=== PATIENT | male | born 1960 | race Caucasian/White ===

== ENCOUNTER 2019-04-06 09:05 | Observation (INO) | payer MEDICAID ==
[2019-04-06] MEDS ORDERED: Albuterol/Ipratropium 3.0-0.5 MG/3 ML Neb Soln NEB ONE (09:09)
[2019-04-06] MEDS ORDERED: methylPREDNISolone Sodium Succinate 125 MG/2 ML SDV IVPUSH ONE (09:13)
--- NOTE | 2019-04-06 09:34 | EDM.PDOC ---
ED HPI GENERAL MEDICAL PROBLEM - General Chief Complaint: Respiratory Problem Stated Complaint: SOB AND HIGH BP Time Seen by Provider: 04/06/19 09:10 Source of Information: Reports: Patient History Limitations: Reports: No Limitations - History of Present Illness INITIAL COMMENTS - FREE TEXT/NARRATIVE: 59-year-old male who is out at [facility] for detox, has been there for 2 days, has a significant increase in his asthma symptoms of shortness of breath and wheezing. He has been using an albuterol inhaler but it is not helping. No fevers or chills. Persistent nonproductive cough. He has been hospitalized for his asthma in the past and has had steroid bursts. Apparently the patient has quit smoking years ago, most of his chronic pulmonary problems are asthma and not emphysema. Onset: Gradual Duration: Day(s): (The last 2 to 3 days) Associated Symptoms: Reports: Cough, Malaise, Shortness of Breath (Severe shortness of breath). Denies: Chest Pain Generalized Pain Score (Numeric/FACES): 6 - Related Data Allergies Allergy/AdvReac Type Severity Reaction Status Date / Time Penicillins Allergy Cannot Verified 04/06/19 09:19 Remember roflumilast Allergy Cannot Verified 04/06/19 09:19 Remember Home Meds: Home Meds Albuterol Sulfate [Proventil Hfa] 2 puff IH Q4H PRN 04/06/19 [History] Ascorbic Acid [Vitamin C] 1,000 mg PO DAILY 04/06/19 [History] Famotidine 20 mg PO BID 04/06/19 [History] Furosemide [Lasix] 40 mg PO DAILY 04/06/19 [History] Magnesium Oxide [Magnesium] 400 mg PO BID 04/06/19 [History] Metoprolol Succinate [Toprol XL 50mg] 50 mg PO DAILY 04/06/19 [History] Montelukast [Singulair] 10 mg PO DAILY 04/06/19 [History] Potassium Chloride [Klor-Con M20] 20 meq PO DAILY 04/06/19 [History] Propranolol [Inderal] 10 mg PO BID 04/06/19 [History] amLODIPine [Norvasc] 10 mg PO DAILY 04/06/19 [History] ED ROS GENERAL - Review of Systems Review Of Systems: See Below Constitutional: Reports: Malaise. Denies: Fever, Chills HEENT: Denies: Throat Pain Respiratory: Reports: Shortness of Breath, Cough, Sputum (Scant, frothy) Cardiovascular: Reports: Other (Concerned about elevated blood pressure). Denies: Chest Pain, Palpitations GI/Abdominal: Denies: Abdominal Pain, Nausea, Vomiting Skin: Reports: Other (Distal extremities looks somewhat dusky) Neurological: Reports: Headache Psychiatric: Reports: Anxiety ED EXAM, GENERAL - Physical Exam Exam: See Below Exam Limited By: No Limitations General Appearance: Moderate Distress, Other (Patient looks very uncomfortable, using accessory muscles and in moderate respiratory distress) Eye Exam: Bilateral Eye: EOMI (No jaundice) Throat/Mouth: Other (Advanced dental decay is present) Head: Atraumatic Neck: Supple, Non-Tender Respiratory/Chest: Respiratory Distress, Wheezing (Diffuse expiratory wheezing and almost no air movement in the bases bilaterally) Cardiovascular: Regular Rate, Rhythm GI/Abdominal: Soft, Non-Tender Extremities: No: Pedal Edema Neurological: Alert, Oriented Psychiatric: Anxious Skin Exam: Warm, Dry, Other (Bruises of the skin on both forearms are present in various stages of healing) Course - Vital Signs Last Recorded V/S: Last Vital Signs Temp 98.3 F 04/06/19 11:25 Pulse 83 04/06/19 11:40 Resp 20 04/06/19 11:25 BP 148/75 H 04/06/19 11:25 Pulse Ox 93 L 04/06/19 11:40 - Orders/Labs/Meds Orders: Active Orders 24 hr Category Date Time Status RT Aerosol Therapy [RC] ASDIRECTED Care 04/06/19 09:09 Active Chest 2V [CR] Routine Exams 04/06/19 09:12 Taken CULTURE RESPIRATORY + SMEAR [RM] Stat Lab 04/06/19 09:29 Results Medication Orders Albuterol (Ventolin Hfa) 0 gm INH Q4H PRN PRN Reason: Wheezing Albuterol/Ipratropium (Duoneb 3.0-0.5 Mg/3 Ml) 3 ml NEB Q4H [facility] Last Admin: 04/06/19 11:40 Dose: 3 ml Amlodipine Besylate (Norvasc) 10 mg PO DAILY [facility] Ascorbic Acid (Vitamin C) 1,000 mg PO DAILY [facility] Famotidine (Pepcid) 20 mg PO BID [facility] Furosemide (Lasix) 40 mg PO DAILY [facility] Magnesium Oxide (Magnesium Oxide) 400 mg PO BID [facility] Metoprolol Succinate (Toprol Xl) 50 mg PO DAILY [facility] Montelukast Sodium (Singulair) 10 mg PO DAILY [facility] Potassium Chloride (Klor-Con M20) 20 meq PO DAILY@0800 [facility] Prednisone (Prednisone) 20 mg PO TID [facility] Last Admin: 04/06/19 13:42 Dose: 20 mg Labs: Laboratory Tests 04/06/19 04/06/19 04/06/19 Range/Units 09:12 09:21 09:21 WBC 15.3 H (4.5-11.0) K/uL RBC 5.04 (4.30-5.90) M/uL Hgb 15.5 H (12.0-15.0) g/dL Hct 46.1 (40.0-54.0) % MCV 92 (80-98) fL MCH 31 (27-31) pg MCHC 34 (32-36) % Plt Count 203 (150-400) K/uL Neut % (Auto) 61 (36-66) % Lymph % (Auto) 12 L (24-44) % [place] % (Auto) 11 H (2-6) % Eos % (Auto) 16 H (2-4) % Baso % (Auto) 1 (0-1) % Puncture Site Rt radial ABG pH 7.407 (7.350-7.450) ABG pCO2 46.0 H (35.0-42.0) mmHg ABG pO2 62.7 L (75.0-100.0) mmHg ABG HCO3 28.4 H (22.0-26.0) mmol/L ABG Total CO2 24.8 (23.0-27.0) mmol/L ABG O2 Saturation 90.6 L (95.0-98.0) % ABG O2 Content 18.2 (15.0-23.0) %vol ABG Base Excess 3.5 mm/L ABG Hemoglobin 14.6 (13.5-18.0) g/dL ABG Oxyhemoglobin 88.7 % ABG Carboxyhemoglobin 1.5 (0.0-1.6) % ABG Methemoglobin 0.6 % Dashawn Test Passed O2 Delivery Device Room air Sodium 142 (140-148) mmol/L Potassium 3.5 L (3.6-5.2) mmol/L Chloride 101 (100-108) mmol/L Carbon Dioxide 30 (21-32) mmol/L Anion Gap 14.5 H (5.0-14.0) mmol/L BUN 10 (7-18) mg/dL Creatinine 0.9 (0.8-1.3) mg/dL Est Cr Clr Drug Dosing 85.05 mL/min Estimated GFR (MDRD) > 60 (>60) Glucose 93 (74-106) mg/dL Calcium 8.8 (8.5-10.1) mg/dL Meds: Medications Generic Name Dose Route Start Last Admin Trade Name Garth PRN Reason Stop Dose Admin Albuterol 0 gm 04/06/19 10:44 Ventolin Hfa INH Q4H PRN Wheezing Albuterol/Ipratropium 3 ml 04/06/19 11:00 04/06/19 11:40 Duoneb 3.0-0.5 Mg/3 Ml NEB 3 ml Q4H [facility] Administration Amlodipine Besylate 10 mg 04/07/19 09:00 Norvasc PO DAILY [facility] Ascorbic Acid 1,000 mg 04/07/19 09:00 Vitamin C PO DAILY [facility] Famotidine 20 mg 04/06/19 21:00 Pepcid PO BID [facility] Furosemide 40 mg 04/07/19 09:00 Lasix PO DAILY [facility] Magnesium Oxide 400 mg 04/06/19 21:00 Magnesium Oxide PO BID [facility] Metoprolol Succinate 50 mg 04/07/19 09:00 Toprol Xl PO DAILY [facility] Montelukast Sodium 10 mg 04/07/19 09:00 Singulair PO DAILY [facility] Potassium Chloride 20 meq 04/07/19 08:00 Klor-Con M20 PO DAILY@0800 [facility] Prednisone 20 mg 04/06/19 14:00 04/06/19 13:42 Prednisone PO 20 mg TID [facility] Administration Discontinued Medications Generic Name Dose Route Start Last Admin Trade Name Garth PRN Reason Stop Dose Admin Albuterol/Ipratropium 3 ml 04/06/19 09:09 04/06/19 09:20 Duoneb 3.0-0.5 Mg/3 Ml NEB 04/06/19 09:10 3 ml ONETIME ONE Administration Methylprednisolone Sodium Succinate 125 mg 04/06/19 09:13 04/06/19 09:21 Solu-Medrol IVPUSH 04/06/19 09:14 125 mg ONETIME ONE Administration - Re-Assessments/Exams Free Text/Narrative Re-Assessment/Exam: 04/06/19 09:36 Patient was given a DuoNeb, O2 saturations were 88 to 92% on room air with extra patient effort. CBC, CMP and blood gases obtained on room air. A two- view chest x-ray then obtained. IV was placed and the patient was given 125 mg of IV Solu-Medrol. 04/06/19 10:13 Patient had some subjective improvement and moderate objective improvement after the DuoNeb. O2 saturations remained in the low 90s with only mild to moderate extra respiratory effort. Blood gases showed some retention of CO2 and a PO2 of only 62.7. pH was normal. Chest x-ray showed hyperinflation but no infiltrate or pneumothorax. A patient I think needs hospitalization for 24 hours of IV Solu-Medrol, repeated DuoNebs and possibly O2 support. This was discussed with Dr. Alonso, and he kindly agreed to see the patient for admission. 04/06/19 10:17 Patient also coughed up some slightly colored frothy sputum which was cultured and Gram stained. Departure - Departure Time of Disposition: 11:19 Disposition: Admitted As Inpatient 66 Clinical Impression: Exacerbation of asthma Qualifiers: Asthma severity: severe Asthma persistence: persistent Qualified Code(s): J45.51 - Severe persistent asthma with (acute) exacerbation - Discharge Information Sepsis Event Note - Focused Exam Vital Signs: Vital Signs Temp Pulse Resp BP Pulse Ox 04/06/19 09:51 96.4 F 96 17 169/93 H 92 L 04/06/19 09:13 96.4 F 96 17 169/93 H 92 L Date Exam was Performed: 04/06/19 Time Exam was Performed: 14:49 - My Orders Last 24 Hours: My Active Orders 04/06/19 09:09 RT Aerosol Therapy [RC] ASDIRECTED 04/06/19 09:12 Chest 2V [CR] Routine 04/06/19 09:29 CULTURE RESPIRATORY + SMEAR [RM] Stat - Assessment/Plan Last 24 Hours: My Active Orders 04/06/19 09:09 RT Aerosol Therapy [RC] ASDIRECTED 04/06/19 09:12 Chest 2V [CR] Routine 04/06/19 09:29 CULTURE RESPIRATORY + SMEAR [RM] Stat
--- NOTE | 2019-04-06 10:29 | PCM.HP.2 ---
H&P History of Present Illness - General Date of Service: 04/06/19 Source of Information: Patient, EMS History Limitations: Reports: No Limitations - History of Present Illness Initial Comments - Free Text/Narative: Anil has a history of COPD and had smoked for 35 years. He stopped because of the respiratory condition. 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 He usually takes albuterol and duo-nebs 6 times/day. He came to [facility] 2 days ago. Onset of Symptoms: Reports: Gradual Duration of Symptoms: Reports: Chronic Generalized Pain Score (Numeric/FACES): 6 - Related Data Allergies/Adverse Reactions: Allergies Allergy/AdvReac Type Severity Reaction Status Date / Time Penicillins Allergy Cannot Verified 04/06/19 09:19 Remember roflumilast Allergy Cannot Verified 04/06/19 09:19 Remember Home Medications: Home Meds Albuterol Sulfate [Proventil Hfa] 2 puff IH Q4H PRN 04/06/19 [History] Ascorbic Acid [Vitamin C] 1,000 mg PO DAILY 04/06/19 [History] Famotidine 20 mg PO BID 04/06/19 [History] Furosemide [Lasix] 40 mg PO DAILY 04/06/19 [History] Magnesium Oxide [Magnesium] 400 mg PO BID 04/06/19 [History] Metoprolol Tartrate [Lopressor] 50 mg PO DAILY 04/06/19 [History] Montelukast [Singulair] 10 mg PO DAILY 04/06/19 [History] Potassium Chloride [Klor-Con M20] 20 meq PO DAILY 04/06/19 [History] Propranolol [Inderal] 10 mg PO BID 04/06/19 [History] amLODIPine [Norvasc] 10 mg PO DAILY 04/06/19 [History] Past Medical History HEENT History: Reports: Cataract, Impaired Vision Cardiovascular History: Reports: Hypertension Respiratory History: Reports: Asthma, COPD Gastrointestinal History: Reports: GERD Musculoskeletal History: Reports: Other (See Below) Other Musculoskeletal History: l foot fx - Infectious Disease History Infectious Disease History: Reports: Chicken Pox - Past Surgical History GI Surgical History: Reports: Hernia, Inguinal Social & Family History - Tobacco Use Smoking Status *Q: Former Smoker Years of Tobacco use: 35 Packs/Tins Daily: 1 Used Tobacco, but Quit: Yes Month/Year Tobacco Last Used: Apr 2013 Second Hand Smoke Exposure: Yes - Caffeine Use Caffeine Use: Reports: Soda - Alcohol Use Days Per Week of Alcohol Use: 7 Number of Drinks Per Day: 10 Total Drinks Per Week: 70 Date of Last Drink: 04/04/19 Time of Last Drink: 11:00 - Recreational Drug Use Recreational Drug Use: Yes Recreational Drug Type: Reports: Marijuana/Hashish, Methamphetamine Recreational Drug Use Frequency: Rarely H&P Review of Systems - Review of Systems: Review Of Systems: See Below General: Reports: Fatigue, Decreased Appetite HEENT: Reports: Sinus Congestion Pulmonary: Reports: Shortness of Breath, Wheezing, Cough, Sputum Cardiovascular: Reports: No Symptoms Gastrointestinal: Reports: No Symptoms Genitourinary: Reports: No Symptoms Musculoskeletal: Reports: No Symptoms Skin: Reports: No Symptoms Psychiatric: Reports: No Symptoms Neurological: Reports: No Symptoms Hematologic/Lymphatic: Reports: No Symptoms Immunologic: Reports: No Symptoms Exam - Exam Exam: See Below - Vital Signs Vital Signs: Last Vital Signs Temp 96.4 F 04/06/19 09:51 Pulse 96 04/06/19 09:51 Resp 17 04/06/19 09:51 BP 169/93 H 04/06/19 09:51 Pulse Ox 92 L 04/06/19 09:51 Weight: 150 lb - Exam General: Alert, Oriented, 4 HEENT: PERRLA, Hearing Intact, Mucosa Moist & [place], Nares Patent, Normal Nasal Septum, Posterior Pharynx Clear, Conjunctiva Clear, EOMI, EACs Clear, TMs Clear Neck: Supple, Trachea Midline, 2 Lungs: Wheezing Cardiovascular: Regular Rate GI/Abdominal Exam: Normal Bowel Sounds, No Distention Back Exam: Normal Inspection Peripheral Pulses: 1+: Radial (L), Radial (R) Skin: Warm, Dry, Intact Neurological: Reflexes Equal Bilateral Neuro Extensive - Mental Status: Alert, Oriented x3, Normal Mood/Affect, Normal Cognition Neuro Extensive - Motor, Sensory, Reflexes: Normal Gait DTR: 1+: Bicep (L), Bicep (R) Psychiatric: Alert - Patient Data Lab Results Last 24 hrs: Laboratory Results - last 24 hr 04/06/19 04/06/19 04/06/19 Range/Units 09:12 09:21 09:21 WBC 15.3 H (4.5-11.0) K/uL RBC 5.04 (4.30-5.90) M/uL Hgb 15.5 H (12.0-15.0) g/dL Hct 46.1 (40.0-54.0) % MCV 92 (80-98) fL MCH 31 (27-31) pg MCHC 34 (32-36) % Plt Count 203 (150-400) K/uL Neut % (Auto) 61 (36-66) % Lymph % (Auto) 12 L (24-44) % [place] % (Auto) 11 H (2-6) % Eos % (Auto) 16 H (2-4) % Baso % (Auto) 1 (0-1) % Puncture Site Rt radial ABG pH 7.407 (7.350-7.450) ABG pCO2 46.0 H (35.0-42.0) mmHg ABG pO2 62.7 L (75.0-100.0) mmHg ABG HCO3 28.4 H (22.0-26.0) mmol/L ABG Total CO2 24.8 (23.0-27.0) mmol/L ABG O2 Saturation 90.6 L (95.0-98.0) % ABG O2 Content 18.2 (15.0-23.0) %vol ABG Base Excess 3.5 mm/L ABG Hemoglobin 14.6 (13.5-18.0) g/dL ABG Oxyhemoglobin 88.7 % ABG Carboxyhemoglobin 1.5 (0.0-1.6) % ABG Methemoglobin 0.6 % Dashawn Test Passed O2 Delivery Device Room air Sodium 142 (140-148) mmol/L Potassium 3.5 L (3.6-5.2) mmol/L Chloride 101 (100-108) mmol/L Carbon Dioxide 30 (21-32) mmol/L Anion Gap 14.5 H (5.0-14.0) mmol/L BUN 10 (7-18) mg/dL Creatinine 0.9 (0.8-1.3) mg/dL Est Cr Clr Drug Dosing 85.05 mL/min Estimated GFR (MDRD) > 60 (>60) Glucose 93 (74-106) mg/dL Calcium 8.8 (8.5-10.1) mg/dL Result Diagrams: 04/06/19 09:21 04/06/19 09:21 Duy Results Last 24 hrs: Microbiology 04/06/19 09:29 Gram Stain - Final Sputum - Expectorated Sepsis Event Note - Evaluation Sepsis Screening Result: No Definite Risk - Focused Exam Vital Signs: Vital Signs Temp Pulse Resp BP Pulse Ox 04/06/19 09:51 96.4 F 96 17 169/93 H 92 L 04/06/19 09:13 96.4 F 96 17 169/93 H 92 L Date Exam was Performed: 04/06/19 Time Exam was Performed: 10:23 Problem List Initiated/Reviewed/Updated: Yes Orders Last 24hrs: Active Orders 24 hr Category Date Time Status RT Aerosol Therapy [RC] ASDIRECTED Care 04/06/19 09:09 Active Chest 2V [CR] Routine Exams 04/06/19 09:12 Taken CULTURE RESPIRATORY + SMEAR [RM] Stat Lab 04/06/19 09:29 Results Assessment/Plan Comment:: Assessment/plan: #1. COPD: Will put in the hospital and give steroids and respiratory treatments and discharge when stable. 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 Will watch for starting of symptoms. #3. Hypertension: Will continue with Metoprolol. - Mortality Measure Prognosis:: Good
[2019-04-06] MEDS ORDERED: Albuterol 8 GM Inhaler INH PRN (10:44)
[2019-04-06] MEDS: Albuterol/Ipratropium 3.0-0.5 MG/3 ML Neb Soln NEB SCH ×4 (11:40→22:01)
[2019-04-06] MEDS: predniSONE 20 MG Tab PO SCH ×2 (13:42→20:22)
[2019-04-06] MEDS: Famotidine 20 MG Tab PO SCH (20:22)
[2019-04-06] MEDS: Magnesium Oxide 400 MG Tab PO SCH (20:22)
[2019-04-06] MEDS ORDERED: Acetaminophen 325 MG Tab PO PRN (21:44)
[2019-04-07] MEDS ORDERED: Melatonin 3 MG Tab PO PRN (00:20)
[2019-04-07] MEDS: Albuterol/Ipratropium 3.0-0.5 MG/3 ML Neb Soln NEB SCH ×3 (03:23→07:22)
[2019-04-07] MEDS ORDERED: Potassium Chloride 20 MEQ Tab.ER PO SCH (08:00)
--- NOTE | 2019-04-07 08:15 | PCM.PN ---
- General Info Date of Service: 04/07/19 Subjective Update: Breathing he said is stable and has no complaints. He denies DT's. - Review of Systems General: Reports: No Symptoms HEENT: Reports: No Symptoms Pulmonary: Reports: No Symptoms Cardiovascular: Reports: No Symptoms Gastrointestinal: Reports: No Symptoms Genitourinary: Reports: No Symptoms Musculoskeletal: Reports: No Symptoms Skin: Reports: No Symptoms Neurological: Reports: No Symptoms Psychiatric: Reports: No Symptoms - Patient Data Vitals - Most Recent: Last Vital Signs Temp 97.1 F 04/07/19 07:00 Pulse 88 04/07/19 07:31 Resp 16 04/07/19 07:00 BP 134/77 04/07/19 07:00 Pulse Ox 94 L 04/07/19 07:00 Weight - Most Recent: 143 lb 12.8 oz I&O - Last 24 Hours: Intake & Output 04/06/19 04/07/19 04/07/19 22:59 06:59 14:59 Intake Total 1080 1000 240 Balance 1080 1000 240 Lab Results Last 24 Hours: Laboratory Results - last 24 hr 04/06/19 04/06/19 04/06/19 Range/Units 09:12 09:21 09:21 WBC 15.3 H (4.5-11.0) K/uL RBC 5.04 (4.30-5.90) M/uL Hgb 15.5 H (12.0-15.0) g/dL Hct 46.1 (40.0-54.0) % MCV 92 (80-98) fL MCH 31 (27-31) pg MCHC 34 (32-36) % Plt Count 203 (150-400) K/uL Neut % (Auto) 61 (36-66) % Lymph % (Auto) 12 L (24-44) % [place] % (Auto) 11 H (2-6) % Eos % (Auto) 16 H (2-4) % Baso % (Auto) 1 (0-1) % Puncture Site Rt radial ABG pH 7.407 (7.350-7.450) ABG pCO2 46.0 H (35.0-42.0) mmHg ABG pO2 62.7 L (75.0-100.0) mmHg ABG HCO3 28.4 H (22.0-26.0) mmol/L ABG Total CO2 24.8 (23.0-27.0) mmol/L ABG O2 Saturation 90.6 L (95.0-98.0) % ABG O2 Content 18.2 (15.0-23.0) %vol ABG Base Excess 3.5 mm/L ABG Hemoglobin 14.6 (13.5-18.0) g/dL ABG Oxyhemoglobin 88.7 % ABG Carboxyhemoglobin 1.5 (0.0-1.6) % ABG Methemoglobin 0.6 % Dashawn Test Passed O2 Delivery Device Room air Sodium 142 (140-148) mmol/L Potassium 3.5 L (3.6-5.2) mmol/L Chloride 101 (100-108) mmol/L Carbon Dioxide 30 (21-32) mmol/L Anion Gap 14.5 H (5.0-14.0) mmol/L BUN 10 (7-18) mg/dL Creatinine 0.9 (0.8-1.3) mg/dL Est Cr Clr Drug Dosing 85.05 mL/min Estimated GFR (MDRD) > 60 (>60) Glucose 93 (74-106) mg/dL Calcium 8.8 (8.5-10.1) mg/dL 04/07/19 04/07/19 Range/Units 04:46 04:46 WBC 15.0 H (4.5-11.0) K/uL RBC 4.31 (4.30-5.90) M/uL Hgb 13.2 D (12.0-15.0) g/dL Hct 38.6 L (40.0-54.0) % MCV 90 (80-98) fL MCH 31 (27-31) pg MCHC 34 (32-36) % Plt Count 152 (150-400) K/uL Neut % (Auto) (36-66) % Lymph % (Auto) (24-44) % [place] % (Auto) (2-6) % Eos % (Auto) (2-4) % Baso % (Auto) (0-1) % Puncture Site ABG pH (7.350-7.450) ABG pCO2 (35.0-42.0) mmHg ABG pO2 (75.0-100.0) mmHg ABG HCO3 (22.0-26.0) mmol/L ABG Total CO2 (23.0-27.0) mmol/L ABG O2 Saturation (95.0-98.0) % ABG O2 Content (15.0-23.0) %vol ABG Base Excess mm/L ABG Hemoglobin (13.5-18.0) g/dL ABG Oxyhemoglobin % ABG Carboxyhemoglobin (0.0-1.6) % ABG Methemoglobin % Dashawn Test O2 Delivery Device Sodium 135 L (140-148) mmol/L Potassium 4.1 (3.6-5.2) mmol/L Chloride 98 L (100-108) mmol/L Carbon Dioxide 26 (21-32) mmol/L Anion Gap 15.1 H (5.0-14.0) mmol/L BUN 18 D (7-18) mg/dL Creatinine 1.0 (0.8-1.3) mg/dL Est Cr Clr Drug Dosing 73.38 mL/min Estimated GFR (MDRD) > 60 (>60) Glucose 156 H (74-106) mg/dL Calcium 8.0 L (8.5-10.1) mg/dL Duy Results Last 24 Hours: Microbiology 04/06/19 09:29 Gram Stain - Final Sputum - Expectorated Respiratory Culture - Preliminary NORMAL RESPIRATORY LIDIA 1 DAY Med Orders - Current: Current Medications Acetaminophen (Tylenol) 650 mg PO Q4H PRN PRN Reason: Headache Last Admin: 04/06/19 21:49 Dose: 650 mg Albuterol (Ventolin Hfa) 0 gm INH Q4H PRN PRN Reason: Wheezing Albuterol/Ipratropium (Duoneb 3.0-0.5 Mg/3 Ml) 3 ml NEB Q4H [facility] Last Admin: 04/07/19 07:22 Dose: 3 ml Amlodipine Besylate (Norvasc) 10 mg PO DAILY [facility] Ascorbic Acid (Vitamin C) 1,000 mg PO DAILY [facility] Famotidine (Pepcid) 20 mg PO BID [facility] Last Admin: 04/06/19 20:22 Dose: 20 mg Furosemide (Lasix) 40 mg PO DAILY [facility] Magnesium Oxide (Magnesium Oxide) 400 mg PO BID [facility] Last Admin: 04/06/19 20:22 Dose: 400 mg Melatonin (Melatonin) 9 mg PO BEDTIME PRN PRN Reason: Sleep Last Admin: 01/31/20 00:47 Dose: 9 mg Metoprolol Succinate (Toprol Xl) 50 mg PO DAILY [facility] Montelukast Sodium (Singulair) 10 mg PO DAILY [facility] Potassium Chloride (Klor-Con M20) 20 meq PO DAILY@0800 [facility] Last Admin: 04/07/19 07:40 Dose: 20 meq Prednisone (Prednisone) 20 mg PO TID [facility] Last Admin: 04/06/19 20:22 Dose: 20 mg Discontinued Medications Albuterol/Ipratropium (Duoneb 3.0-0.5 Mg/3 Ml) 3 ml NEB ONETIME ONE Stop: 04/06/19 09:10 Last Admin: 04/06/19 09:20 Dose: 3 ml Methylprednisolone Sodium Succinate (Solu-Medrol) 125 mg IVPUSH ONETIME ONE Stop: 04/06/19 09:14 Last Admin: 04/06/19 09:21 Dose: 125 mg - Exam General: Alert, Oriented HEENT: Pupils Equal, Pupils Reactive, EOMI, Mucous Membr. Moist/[place] Neck: Supple Lungs: Wheezing Cardiovascular: Regular Rate, Regular Rhythm GI/Abdominal Exam: Normal Bowel Sounds, Soft, Non-Tender, No Organomegaly, No Distention, No Abnormal Bruit, No Mass, Pelvis Stable Extremities: Normal Inspection, Normal Range of Motion, Non-Tender, No Pedal Edema, Normal Capillary Refill Peripheral Pulses: 1+: Radial (L), Radial (R) Skin: Warm, Dry, Intact Neurological: No New Focal Deficit Psy/Mental Status: Alert, Normal Affect, Normal Mood Sepsis Event Note - Evaluation Sepsis Screening Result: No Definite Risk - Focused Exam Vital Signs: Vital Signs Temp Pulse Resp BP Pulse Ox 04/07/19 07:31 88 04/07/19 07:00 97.1 F 89 16 134/77 94 L 04/07/19 03:31 96.2 F 87 16 159/81 H 94 L 04/07/19 03:00 16 04/06/19 22:46 98.2 F 99 16 133/80 97 Date Exam was Performed: 04/07/19 Time Exam was Performed: 08:12 - Problem List Review Problem List Initiated/Reviewed/Updated: Yes - My Orders Last 24 Hours: My Active Orders 04/06/19 10:37 Patient Status [ADT] Routine May Shower [RC] ASDIRECTED Oxygen Therapy [RC] PRN Up ad Cuca [RC] ASDIRECTED Up to Chair [RC] QID VTE/DVT Education [RC] Per Unit Routine Vital Signs [RC] Q4H Resuscitation Status Routine 04/06/19 10:40 Intake and Output [RC] QSHIFT 04/06/19 10:43 RT Aerosol Therapy [RC] ASDIRECTED 04/06/19 10:44 Albuterol [Ventolin HFA] 0 gm INH Q4H PRN 04/06/19 11:00 Albuterol/Ipratropium [DuoNeb 3.0-0.5 MG/3 ML] 3 ml NEB Q4H 04/06/19 14:00 predniSONE 20 mg PO TID 04/06/19 21:00 Famotidine [Pepcid] 20 mg PO BID Magnesium Oxide 400 mg PO BID 04/06/19 21:44 Acetaminophen [Tylenol] 650 mg PO Q4H PRN 04/06/19 Lunch Regular Diet [DIET] 04/07/19 00:20 Melatonin 9 mg PO BEDTIME PRN 04/07/19 08:00 Potassium Chloride [Klor-Con M20] 20 meq PO DAILY@0800 04/07/19 08:11 Ready for Discharge [RC] PER UNIT ROUTINE 04/07/19 09:00 Ascorbic Acid [Vitamin C] 1,000 mg PO DAILY Furosemide [Lasix] 40 mg PO DAILY Metoprolol Succinate [Toprol XL] 50 mg PO DAILY Montelukast [Singulair] 10 mg PO DAILY amLODIPine [Norvasc] 10 mg PO DAILY - Plan Plan:: Assessment/plan: #1. COPD: KStable at the present time and in no respiratory distress. 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 #3. Hypertension: Will continue with Metoprolol. Plan to discharge home today.
--- NOTE | 2019-04-07 08:19 | PCM.DCSUM1 ---
Discharge Summary - Hospital Course Brief History: Admitted in respiratory distress as he has a hisstory of COPD Diagnosis: Stroke: No - Discharge Data Discharge Date: 04/07/19 Discharge Disposition: Home, Self-Care 01 Condition: Stable - Referral to Home Health Primary Care Physician: PCP None - Patient Summary/Data Hospital Course: Started him back of duo-nebs and prednisone and made rapid improvement and is stable for discharge. - Patient Instructions Diet: Heart Healthy Diet Activity: As Tolerated - Discharge Plan *PRESCRIPTION DRUG MONITORING PROGRAM REVIEWED*: No *COPY OF PRESCRIPTION DRUG MONITORING REPORT IN PATIENT DIOGENES: No Home Medications: Home Meds Albuterol Sulfate [Proventil Hfa] 2 puff IH Q4H PRN 04/06/19 [History] Ascorbic Acid [Vitamin C] 1,000 mg PO DAILY 04/06/19 [History] Famotidine 20 mg PO BID 04/06/19 [History] Furosemide [Lasix] 40 mg PO DAILY 04/06/19 [History] Magnesium Oxide [Magnesium] 400 mg PO BID 04/06/19 [History] Metoprolol Succinate [Toprol XL 50mg] 50 mg PO DAILY 04/06/19 [History] Montelukast [Singulair] 10 mg PO DAILY 04/06/19 [History] Potassium Chloride [Klor-Con M20] 20 meq PO DAILY 04/06/19 [History] Propranolol [Inderal] 10 mg PO BID 04/06/19 [History] amLODIPine [Norvasc] 10 mg PO DAILY 04/06/19 [History] predniSONE 20 mg PO TID tablet 04/07/19 [Rx] Forms: ED Department Discharge Referrals: PCP,None [Primary Care Provider] - - Discharge Summary/Plan Comment DC Time >30 min.: Yes Discharge Summary/Plan Comment: Assessment/plan: #1. COPD: KStable at the present time and in no respiratory distress. 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 #3. Hypertension: Will continue with Metoprolol. Plan to discharge home today. - General Info Date of Service: 04/07/19 Functional Status: Reports: Ambulating - Review of Systems General: Reports: No Symptoms HEENT: Reports: No Symptoms Pulmonary: Reports: No Symptoms Cardiovascular: Reports: No Symptoms Gastrointestinal: Reports: No Symptoms Genitourinary: Reports: No Symptoms Musculoskeletal: Reports: No Symptoms Skin: Reports: No Symptoms Neurological: Reports: No Symptoms Psychiatric: Reports: No Symptoms - Patient Data Vitals - Most Recent: Last Vital Signs Temp 97.1 F 04/07/19 07:00 Pulse 88 04/07/19 07:31 Resp 16 04/07/19 07:00 BP 134/77 04/07/19 07:00 Pulse Ox 94 L 04/07/19 07:00 Weight - Most Recent: 143 lb 12.8 oz I&O - Last 24 hours: Intake & Output 04/06/19 04/07/19 04/07/19 22:59 06:59 14:59 Intake Total 1080 1000 240 Balance 1080 1000 240 Lab Results - Last 24 hrs: Laboratory Results - last 24 hr 04/06/19 04/06/19 04/06/19 Range/Units 09:12 09:21 09:21 WBC 15.3 H (4.5-11.0) K/uL RBC 5.04 (4.30-5.90) M/uL Hgb 15.5 H (12.0-15.0) g/dL Hct 46.1 (40.0-54.0) % MCV 92 (80-98) fL MCH 31 (27-31) pg MCHC 34 (32-36) % Plt Count 203 (150-400) K/uL Neut % (Auto) 61 (36-66) % Lymph % (Auto) 12 L (24-44) % [place] % (Auto) 11 H (2-6) % Eos % (Auto) 16 H (2-4) % Baso % (Auto) 1 (0-1) % Puncture Site Rt radial ABG pH 7.407 (7.350-7.450) ABG pCO2 46.0 H (35.0-42.0) mmHg ABG pO2 62.7 L (75.0-100.0) mmHg ABG HCO3 28.4 H (22.0-26.0) mmol/L ABG Total CO2 24.8 (23.0-27.0) mmol/L ABG O2 Saturation 90.6 L (95.0-98.0) % ABG O2 Content 18.2 (15.0-23.0) %vol ABG Base Excess 3.5 mm/L ABG Hemoglobin 14.6 (13.5-18.0) g/dL ABG Oxyhemoglobin 88.7 % ABG Carboxyhemoglobin 1.5 (0.0-1.6) % ABG Methemoglobin 0.6 % Dashawn Test Passed O2 Delivery Device Room air Sodium 142 (140-148) mmol/L Potassium 3.5 L (3.6-5.2) mmol/L Chloride 101 (100-108) mmol/L Carbon Dioxide 30 (21-32) mmol/L Anion Gap 14.5 H (5.0-14.0) mmol/L BUN 10 (7-18) mg/dL Creatinine 0.9 (0.8-1.3) mg/dL Est Cr Clr Drug Dosing 85.05 mL/min Estimated GFR (MDRD) > 60 (>60) Glucose 93 (74-106) mg/dL Calcium 8.8 (8.5-10.1) mg/dL 04/07/19 04/07/19 Range/Units 04:46 04:46 WBC 15.0 H (4.5-11.0) K/uL RBC 4.31 (4.30-5.90) M/uL Hgb 13.2 D (12.0-15.0) g/dL Hct 38.6 L (40.0-54.0) % MCV 90 (80-98) fL MCH 31 (27-31) pg MCHC 34 (32-36) % Plt Count 152 (150-400) K/uL Neut % (Auto) (36-66) % Lymph % (Auto) (24-44) % [place] % (Auto) (2-6) % Eos % (Auto) (2-4) % Baso % (Auto) (0-1) % Puncture Site ABG pH (7.350-7.450) ABG pCO2 (35.0-42.0) mmHg ABG pO2 (75.0-100.0) mmHg ABG HCO3 (22.0-26.0) mmol/L ABG Total CO2 (23.0-27.0) mmol/L ABG O2 Saturation (95.0-98.0) % ABG O2 Content (15.0-23.0) %vol ABG Base Excess mm/L ABG Hemoglobin (13.5-18.0) g/dL ABG Oxyhemoglobin % ABG Carboxyhemoglobin (0.0-1.6) % ABG Methemoglobin % [place] Test O2 Delivery Device Sodium 135 L (140-148) mmol/L Potassium 4.1 (3.6-5.2) mmol/L Chloride 98 L (100-108) mmol/L Carbon Dioxide 26 (21-32) mmol/L Anion Gap 15.1 H (5.0-14.0) mmol/L BUN 18 D (7-18) mg/dL Creatinine 1.0 (0.8-1.3) mg/dL Est Cr Clr Drug Dosing 73.38 mL/min Estimated GFR (MDRD) > 60 (>60) Glucose 156 H (74-106) mg/dL Calcium 8.0 L (8.5-10.1) mg/dL LUCA Results - Last 24 hrs: Microbiology 04/06/19 09:29 Gram Stain - Final Sputum - Expectorated Respiratory Culture - Preliminary NORMAL RESPIRATORY LIDIA 1 DAY Med Orders - Current: Current Medications Acetaminophen (Tylenol) 650 mg PO Q4H PRN PRN Reason: Headache Last Admin: 04/06/19 21:49 Dose: 650 mg Albuterol (Ventolin Hfa) 0 gm INH Q4H PRN PRN Reason: Wheezing Albuterol/Ipratropium (Duoneb 3.0-0.5 Mg/3 Ml) 3 ml NEB Q4H [facility] Last Admin: 04/07/19 07:22 Dose: 3 ml Amlodipine Besylate (Norvasc) 10 mg PO DAILY [facility] Ascorbic Acid (Vitamin C) 1,000 mg PO DAILY [facility] Famotidine (Pepcid) 20 mg PO BID [facility] Last Admin: 04/06/19 20:22 Dose: 20 mg Furosemide (Lasix) 40 mg PO DAILY [facility] Magnesium Oxide (Magnesium Oxide) 400 mg PO BID [facility] Last Admin: 04/06/19 20:22 Dose: 400 mg Melatonin (Melatonin) 9 mg PO BEDTIME PRN PRN Reason: Sleep Last Admin: 04/07/19 00:47 Dose: 9 mg Metoprolol Succinate (Toprol Xl) 50 mg PO DAILY [facility] Montelukast Sodium (Singulair) 10 mg PO DAILY [facility] Potassium Chloride (Klor-Con M20) 20 meq PO DAILY@0800 [facility] Last Admin: 04/07/19 07:40 Dose: 20 meq Prednisone (Prednisone) 20 mg PO TID [facility] Last Admin: 04/06/19 20:22 Dose: 20 mg Discontinued Medications Albuterol/Ipratropium (Duoneb 3.0-0.5 Mg/3 Ml) 3 ml NEB ONETIME ONE Stop: 04/06/19 09:10 Last Admin: 04/06/19 09:20 Dose: 3 ml Methylprednisolone Sodium Succinate (Solu-Medrol) 125 mg IVPUSH ONETIME ONE Stop: 04/06/19 09:14 Last Admin: 04/06/19 09:21 Dose: 125 mg - Exam General: Reports: Alert, Oriented HEENT: Reports: Pupils Equal, Pupils Reactive, EOMI, Mucous Membr. Moist/[place] Neck: Reports: Supple Lungs: Reports: Wheezing Cardiovascular: Reports: Regular Rate, Regular Rhythm GI/Abdominal Exam: Normal Bowel Sounds, Soft, Non-Tender, No Organomegaly, No Distention, No Abnormal Bruit, No Mass, Pelvis Stable Back Exam: Reports: Normal Inspection, Full Range of Motion Extremities: Normal Inspection, Normal Range of Motion, Non-Tender, No Pedal Edema, Normal Capillary Refill Skin: Reports: Warm, Dry, Intact Neurological: Reports: No New Focal Deficit Psy/Mental Status: Reports: Alert, Normal Affect, Normal Mood
[2019-04-07] MEDS: Magnesium Oxide 400 MG Tab PO SCH (08:38)
[2019-04-07] MEDS: predniSONE 20 MG Tab PO SCH (08:39)
--- NOTE | 2019-04-07 08:39 | CRLCR ---
INDICATION: Dyspnea COMPARISON: none TECHNIQUE: Two view chest. FINDINGS: The lungs are clear. There is no evidence of pneumothorax. The heart, mediastinum and pulmonary vessels are of normal size. There is no evidence of pleural fluid. IMPRESSION: Negative chest. Dictated by Sandro Cordoba MD @ Apr 07 2019 8:42AM Signed by Dr. Sandro Cordoba @ Apr 07 2019 8:44AM
[2019-04-07] MEDS: Famotidine 20 MG Tab PO SCH (08:40)
[2019-04-07] MEDS ORDERED: Metoprolol Succinate 50 MG Tab.ER PO SCH (09:00)
[2019-04-07] MEDS ORDERED: Ascorbic Acid 500 MG Tab PO SCH (09:00)
[2019-04-07] MEDS ORDERED: Furosemide 40 MG Tab PO SCH (09:00)
[2019-04-07] MEDS ORDERED: amLODIPine 10 MG Tab PO SCH (09:00)
[2019-04-07] MEDS ORDERED: Montelukast 10 MG Tab PO SCH (09:00)
== END 2019-04-07 11:01 | disposition home or self-care (01) ==
LOC: JP.ED 09:05 → JP.MS 10:37
PROVIDERS: ADMIT Internal Medicine; ATTEND Internal Medicine
DX: J44.9 Chronic obstructive pulmonary disease, unspecified (principal); K70.30 Alcoholic cirrhosis of liver without ascites; I10 Essential (primary) hypertension; K21.9 Gastro-esophageal reflux disease without esophagitis; Z79.51 Long term (current) use of inhaled steroids; Z87.891 Personal history of nicotine dependence; Z88.0 Allergy status to penicillin; Z88.8 Allergy status to other drugs, medicaments and biological substances
CPT/HCPCS: 36415; 36600; 71046; 80048; 82803; 85025; 85027; 87070; 87205; 94640; 96374; 99285; A9270; G0378; J2930; J7620-GY